=== PATIENT | male | born 1950 | race Caucasian/White ===

== ENCOUNTER 2020-05-15 17:03 | Inpatient (IN) | payer OTHER ==
[~2020-05-15 17:03] MED LIST: ACETAMINOPHEN325 MG PO; BUSPAR5 MG PO; CERTAGEN1 EACH PO; DULERA 200 MCG8.8 GM INH; FEOSOL325 MG PO; MAG-OXIDE 400M400 MG PO; NICOTINE PATCH1 EAC2 TD; OXYCODONE-ACET1 EAC1 PO; PANTOPRAZOLE SO40 MG PO; PROVENTIL HFA6.7 GM INH; SPIRIVA 185 PUFFS/IN INH; TOPROL XL 25MG25 MG PO; VITAMIN B-1100 M1 PO; XARELTO10 MG PO
[2020-05-15 18:29] LABS: BASOPHIL 0.3 % (0-2); EOSINOPHIL 0 % (0-7); HCT 43.4 % (42.0-52.0); HGB 15.6 g/dl (13.2-18.0); LYMPHOCYTE 15.1 % (15-48); MCH 33.3 pg (25.0-31.0); MCHC 35.9 g/dL (32.0-36.0); MCV 92.7 fL (78.0-100.0); MONOCYTE 15.4 % (0-12); MPV 10.1 fL (6.0-9.5); NEUTROPHIL 68.9 % (41-80); NRBC 0; PLT 115 K/uL (150-400); RBC 4.68 M/uL (4.70-6.00); RDW 12.9 % (11.5-14.0)
[2020-05-15 18:36] LABS: BILIRUBIN NEGATIVE (NEGATIVE); BLOOD NEGATIVE Ery/uL (NEGATIVE); CLARITY CLEAR (CLEAR); COLOR YELLOW (YELLOW); GLUCOSE (U) NORMAL (NORMAL); LEUKOCYTES TRACE Leu/uL (NEGATIVE); NITRITE NEGATIVE (NEGATIVE); PROTEIN NEGATIVE (NEGATIVE); SPECIFIC GRAVITY 1.015 (1.001-1.030); UROBILINOGEN 0.2 mg/dL (0.2-1.0); pH 6.5 (5.0-9.0)
[2020-05-15 18:42] LABS: URINARY RBC RARE
[2020-05-15 18:43] LABS: BACTERIA 1+; MUCOUS MODERATE
[2020-05-15 18:49] LABS: ALBUMIN 3.5 g/dL (3.4-5.0); BILIRUBIN - TOTAL 0.4 mg/dL (0.2-1.0); BUN/CREAT RATIO (CALC) 18.4 RATIO; CREATININE 0.49 mg/dL (0.67-1.17); GLOBULIN (CALCULATION) 3.8 g/dL; POTASSIUM 3.3 mmol/L (3.5-5.1); TOTAL PROTEIN 7.3 g/dL (6.4-8.2)
[2020-05-15 19:30] LABS: CORONAVIRUS 2019 SARS-COV-2 POSITIVE (NEGATIVE)
[2020-05-15 19:31] LABS: INFLUENZA A NAA NEGATIVE (NEGATIVE)
[2020-05-15 20:11] LABS: AMPHETAMINES NEGATIVE (NEGATIVE); BARBITURATES NEGATIVE (NEGATIVE); ECSTASY (MDMA) NEGATIVE (NEGATIVE); MARIJUANA (THC) NEGATIVE (NEGATIVE); METHADONE NEGATIVE (NEGATIVE); OPIATES NEGATIVE (NEGATIVE); OXYCODONE NEGATIVE (NEGATIVE)
--- NOTE | 2020-05-15 22:23 | NUR ---
PATIENT CURSING, C/O BEING PUT ON MONITOR, BEING ASKED QUESTIONS AND BOTHERED, ANIMATED VOICE WITH TELLING ME MEDS BUT WON'T TELL NAMES BUT REFUSED TO SAY HE DOESN'T KNOW, "I'M NOT SMART LIKE YAJACOB, I DON'T HAVE THOSE COMPUTERS
[2020-05-16 05:00] LABS: BASOPHIL 0.9 % (0-2); EOSINOPHIL 0 % (0-7); HCT 36.3 % (42.0-52.0); LYMPHOCYTE 26.3 % (15-48); MCH 33.3 pg (25.0-31.0); MCHC 35.8 g/dL (32.0-36.0); MCV 93.1 fL (78.0-100.0); MONOCYTE 18.4 % (0-12); MPV 9.2 fL (6.0-9.5); NEUTROPHIL 53.9 % (41-80); NRBC 0; PLT 101 K/uL (150-400); RDW 12.9 % (11.5-14.0); WBC 2.2 K/uL (4.0-10.5)
[2020-05-16 05:19] LABS: ALBUMIN 2.8 g/dL (3.4-5.0); BILIRUBIN - TOTAL 0.4 mg/dL (0.2-1.0); BUN/CREAT RATIO (CALC) 14.9 RATIO; CREATININE 0.47 mg/dL (0.67-1.17); GLOBULIN (CALCULATION) 3.2 g/dL; POTASSIUM 2.9 mmol/L (3.5-5.1)
[2020-05-17 03:57] LABS: EOSINOPHIL 0.3 % (0-7); HCT 39.6 % (42.0-52.0); LYMPHOCYTE 23.4 % (15-48); MCH 33.6 pg (25.0-31.0); MCHC 35.4 g/dL (32.0-36.0); MONOCYTE 15.2 % (0-12); NEUTROPHIL 59.8 % (41-80); NRBC 0; PLT 104 K/uL (150-400); RBC 4.17 M/uL (4.70-6.00); RDW 13.1 % (11.5-14.0); WBC 2.9 K/uL (4.0-10.5)
[2020-05-17 04:22] LABS: ALBUMIN 2.8 g/dL (3.4-5.0); BILIRUBIN - TOTAL 0.3 mg/dL (0.2-1.0); BUN/CREAT RATIO (CALC) 17.3 RATIO; CREATININE 0.52 mg/dL (0.67-1.17); GLOBULIN (CALCULATION) 3.3 g/dL; POTASSIUM 3.6 mmol/L (3.5-5.1); TOTAL PROTEIN 6.1 g/dL (6.4-8.2)
--- NOTE | 2020-05-17 14:05 | NUR ---
05/17/20 Mr. Orourke lives in a makeshift apartment in a [place]. The place is heated with a wood burning stove. Ther is a bathroom. - Mr. Orourke would like to go to a DE until he is feeling stronger. His alternate plan would be to return to the [employer]. - Dr. Rosa was requested to order PT/OT.
[2020-05-18 03:49] LABS: BASOPHIL 0.7 % (0-2); EOSINOPHIL 0 % (0-7); HCT 39.8 % (42.0-52.0); HGB 14.2 g/dl (13.2-18.0); LYMPHOCYTE 24.8 % (15-48); MCH 33.2 pg (25.0-31.0); MCHC 35.7 g/dL (32.0-36.0); MONOCYTE 10.6 % (0-12); MPV 9.8 fL (6.0-9.5); NEUTROPHIL 63.2 % (41-80); NRBC 0; RBC 4.28 M/uL (4.70-6.00); RDW 12.9 % (11.5-14.0)
[2020-05-18 04:01] LABS: PLT 123 K/uL (150-400)
[2020-05-18 04:07] LABS: WBC 1.4 K/uL (4.0-10.5)
[2020-05-18 04:12] LABS: ALBUMIN 2.9 g/dL (3.4-5.0); BILIRUBIN - TOTAL 0.4 mg/dL (0.2-1.0); BUN/CREAT RATIO (CALC) 27.3 RATIO; C-REACTIVE PROTEIN 3.4 mg/dL (<=0.90); CREATININE 0.33 mg/dL (0.67-1.17); GLOBULIN (CALCULATION) 3.8 g/dL; POTASSIUM 3.7 mmol/L (3.5-5.1); TOTAL PROTEIN 6.7 g/dL (6.4-8.2)
--- NOTE | 2020-05-18 12:45 | NUR ---
2 [facility] is reviewing Mr. Orourke for admission.
[2020-05-19 06:43] LABS: BASOPHIL 0.2 % (0-2); EOSINOPHIL 0 % (0-7); HCT 38.6 % (42.0-52.0); HGB 13.7 g/dl (13.2-18.0); LYMPHOCYTE 16.2 % (15-48); MCH 33.4 pg (25.0-31.0); MCHC 35.5 g/dL (32.0-36.0); MCV 94.1 fL (78.0-100.0); MONOCYTE 18.1 % (0-12); MPV 10.1 fL (6.0-9.5); NEUTROPHIL 64.8 % (41-80); NRBC 0; PLT 157 K/uL (150-400); RDW 12.9 % (11.5-14.0)
[2020-05-19 06:46] LABS: WBC 4.6 K/uL (4.0-10.5)
[2020-05-19 07:20] LABS: ALBUMIN 2.8 g/dL (3.4-5.0); BILIRUBIN - TOTAL 0.3 mg/dL (0.2-1.0); BUN/CREAT RATIO (CALC) 25.7 RATIO; C-REACTIVE PROTEIN 1.7 mg/dL (<=0.90); CREATININE 0.35 mg/dL (0.67-1.17); GLOBULIN (CALCULATION) 3.5 g/dL; POTASSIUM 3.6 mmol/L (3.5-5.1); TOTAL PROTEIN 6.3 g/dL (6.4-8.2)
[2020-05-20 06:58] LABS: BASOPHIL 0.2 % (0-2); EOSINOPHIL 0 % (0-7); HCT 38.4 % (42.0-52.0); HGB 13.4 g/dl (13.2-18.0); MCHC 34.9 g/dL (32.0-36.0); MCV 94.6 fL (78.0-100.0); MONOCYTE 13.1 % (0-12); MPV 9.5 fL (6.0-9.5); NEUTROPHIL 61.2 % (41-80); NRBC 0; PLT 210 K/uL (150-400); RBC 4.06 M/uL (4.70-6.00); RDW 13.1 % (11.5-14.0); WBC 5.3 K/uL (4.0-10.5)
[2020-05-20 06:59] LABS: LYMPHOCYTE 25.1 % (15-48)
[2020-05-20 07:33] LABS: ALBUMIN 2.7 g/dL (3.4-5.0); BILIRUBIN - TOTAL 0.3 mg/dL (0.2-1.0); BUN/CREAT RATIO (CALC) 32.4 RATIO; C-REACTIVE PROTEIN 1.2 mg/dL (<=0.90); CREATININE 0.37 mg/dL (0.67-1.17); GLOBULIN (CALCULATION) 3.6 g/dL; TOTAL PROTEIN 6.3 g/dL (6.4-8.2)
--- NOTE | 2020-05-20 12:19 | NUR ---
05/20/20 [facility] accepted Mr. Orourke. Please call report to: [phone] and fax DS to: . Report given to MS SONIA Conde.
[2020-05-20] MEDS ORDERED: DEXAMETHASONE 2M2 MG PO (14:25)
== END 2020-05-20 16:35 | DRG 177 ==
LOC: FER 17:03 → FMS 19:55
PROVIDERS: Internal Medicine; Nurse Practitioner; Nurse Practitioner Family; ADMIT Allergy & Immunology Allergy
PROC: 8E0ZXY6 Isolation (ICD-10-PCS; principal; 2020-05-15)
PROC: 3E0333Z Introduction of Anti-inflammatory into Peripheral Vein, Percutaneous Approach (ICD-10-PCS; 2020-05-18)
DX: U07.1 COVID-19 (principal); J12.82 Pneumonia due to coronavirus disease 2019; I50.22 Chronic systolic (congestive) heart failure; E87.1 Hypo-osmolality and hyponatremia; I42.9 Cardiomyopathy, unspecified; E44.0 Moderate protein-calorie malnutrition; Z68.1 Body mass index [BMI] 19.9 or less, adult; J44.9 Chronic obstructive pulmonary disease, unspecified; E87.6 Hypokalemia; I36.1 Nonrheumatic tricuspid (valve) insufficiency; F41.9 Anxiety disorder, unspecified; F32.9 Major depressive disorder, single episode, unspecified; F10.10 Alcohol abuse, uncomplicated; F17.210 Nicotine dependence, cigarettes, uncomplicated; Z99.81 Dependence on supplemental oxygen
CPT/HCPCS: 36415; 71045; 80053; 80305; 81001; 82728; 85025; 86140; 87088; 87205; 87449; 97161; 97165; 97535; G0480; J1650; J3411; J3475; J7030; J7120; J8540; U0002

== ENCOUNTER 2020-07-08 19:01 | Inpatient (IN) | payer OTHER ==
[~2020-07-08 19:01] MED LIST changes: +DEXAMETHASONE 2M2 MG PO
[2020-07-08 19:31] LABS: BASOPHIL 0.3 % (0-2); HCT 37.5 % (42.0-52.0); HGB 13.3 g/dl (13.2-18.0); LYMPHOCYTE 2.2 % (15-48); MCH 35.1 pg (25.0-31.0); MCHC 35.5 g/dL (32.0-36.0); MCV 98.9 fL (78.0-100.0); MONOCYTE 11.5 % (0-12); MPV 9.4 fL (6.0-9.5); NRBC 0; PLT 131 K/uL (150-400); RBC 3.79 M/uL (4.70-6.00); RDW 15.3 % (11.5-14.0); WBC 15.1 K/uL (4.0-10.5)
[2020-07-08 19:33] LABS: NEUTROPHIL 83.3 % (41-80)
[2020-07-08 19:51] LABS: ALBUMIN 2.9 g/dL (3.4-5.0); BILIRUBIN - TOTAL 0.9 mg/dL (0.2-1.0); BUN/CREAT RATIO (CALC) 14.1 RATIO; CREATININE 1.49 mg/dL (0.67-1.17); GLOBULIN (CALCULATION) 3.8 g/dL; TOTAL PROTEIN 6.7 g/dL (6.4-8.2)
[2020-07-08 20:01] LABS: POTASSIUM 3.3 mmol/L (3.5-5.1)
[2020-07-08 23:55] LABS: BILIRUBIN NEGATIVE (NEGATIVE); BLOOD 1+ Ery/uL (NEGATIVE); CLARITY HAZY (CLEAR); COLOR YELLOW (YELLOW); GLUCOSE (U) NORMAL (NORMAL); LEUKOCYTES 1+ Leu/uL (NEGATIVE); NITRITE POSITIVE (NEGATIVE); PROTEIN 2+ mg/dL (NEGATIVE); UROBILINOGEN 0.2 mg/dL (0.2-1.0)
[2020-07-09] LABS: BACTERIA 4+; URINARY WBC TNTC
[2020-07-09 00:01] LABS: MUCOUS TRACE
[2020-07-09 00:31] LABS: CORONAVIRUS 2019 SARS-COV-2 NEGATIVE (NEGATIVE); INFLUENZA A NAA NEGATIVE (NEGATIVE)
[2020-07-09 05:01] LABS: BASOPHIL 0.2 % (0-2); EOSINOPHIL 0 % (0-7); HCT 32.7 % (42.0-52.0); HGB 11.3 g/dl (13.2-18.0); LYMPHOCYTE 1.8 % (15-48); MCH 34.9 pg (25.0-31.0); MCHC 34.6 g/dL (32.0-36.0); MCV 100.9 fL (78.0-100.0); MONOCYTE 11.8 % (0-12); MPV 9.5 fL (6.0-9.5); NEUTROPHIL 74.3 % (41-80); NRBC 0; PLT 102 K/uL (150-400); RBC 3.24 M/uL (4.70-6.00); RDW 15.5 % (11.5-14.0); WBC 12.3 K/uL (4.0-10.5)
[2020-07-09 05:19] LABS: TOTAL CELL COUNT 100
[2020-07-09 05:20] LABS: ANISOCYTOSIS SLIGHT; BAND 9 % (0-10); BASOPHIL(M) 0 % (0-2); EOSINOPHIL(M) 0 % (0-7); LYMPHOCYTE(M) 6 % (15-48); MONOCYTE(M) 11 % (0-12); NEUTROPHILS(M) 74 % (41-80)
[2020-07-09 05:21] LABS: PLATELET ESTIMATE NORMAL; PLATELET MORPHOLOGY NORMAL
[2020-07-09 06:05] LABS: IRON % SATURATION 3.7 %SAT (20-50)
[2020-07-09 06:41] LABS: ALBUMIN 2.4 g/dL (3.4-5.0); BILIRUBIN - TOTAL 0.9 mg/dL (0.2-1.0); BUN/CREAT RATIO (CALC) 15.4 RATIO; CREATININE 1.36 mg/dL (0.67-1.17); FOLIC ACID (SERUM) 25.7 ng/mL (8.6-58.9); GLOBULIN (CALCULATION) 3.2 g/dL; MAGNESIUM 1.1 mg/dL (1.8-2.4); POTASSIUM 3.2 mmol/L (3.5-5.1); TOTAL PROTEIN 5.6 g/dL (6.4-8.2)
[2020-07-10 04:10] LABS: BUN/CREAT RATIO (CALC) 26.7 RATIO; CREATININE 1.01 mg/dL (0.67-1.17); POTASSIUM 3.4 mmol/L (3.5-5.1)
[2020-07-10 04:12] LABS: MAGNESIUM 2.2 mg/dL (1.8-2.4)
[2020-07-10 05:00] LABS: BASOPHIL 0.1 % (0-2); HCT 31.9 % (42.0-52.0); HGB 10.9 g/dl (13.2-18.0); LYMPHOCYTE 1.2 % (15-48); MCH 34.1 pg (25.0-31.0); MCHC 34.2 g/dL (32.0-36.0); MCV 99.7 fL (78.0-100.0); MONOCYTE 8.4 % (0-12); MPV 9.8 fL (6.0-9.5); NEUTROPHIL 63.7 % (41-80); PLT 124 K/uL (150-400); RDW 15.1 % (11.5-14.0); WBC 13.66 K/uL (4.0-10.5)
--- NOTE | 2020-07-10 10:38 | NUR ---
1040 P REFUSING TO HAVE IV HOOKED BACK UP, ALSO TOOK TELE MONITOR OFF AT THIS TIME, REFUSING TO LET PUT BACK ON, HE SAID HE HAS TO BE ABLE TO GO. DR BECKFORD NOTIFIED.
--- NOTE | 2020-07-10 10:52 | NUR ---
1052 PT ANGRY AND CUSSING, WANTS TO SHUT ROOM DOOR TO HAVE PRIVACY, HE WANTS TO GET UP AND MOVE AROUND. EDUCATED PT ON THE IMPORATNCE OF CALLING FOR HELP WHEN GETTING UP TO PREVENT FALLS. PT TOOK HIS OWN BUSPAR THAT HE HAD IN HIS ROOM. INSTRUCTED PT NOT TO TAKE, BUT HE TOOK ANYWAY. HE SAID IT HELPS HIM WHEN HE GETS ANGRY, WILL TALK TO DR ABOUT GETTING PRESCRIBED FOR HIM.
[2020-07-11 06:45] LABS: BASOPHIL 0.6 % (0-2); EOSINOPHIL 0 % (0-7); HCT 34.4 % (42.0-52.0); HGB 11.7 g/dl (13.2-18.0); LYMPHOCYTE 1.7 % (15-48); MONOCYTE 6.7 % (0-12); MPV 9.9 fL (6.0-9.5); NRBC 0; PLT 120 K/uL (150-400); RBC 3.34 M/uL (4.70-6.00); RDW 16.2 % (11.5-14.0); WBC 9.5 K/uL (4.0-10.5)
[2020-07-11 06:52] LABS: NEUTROPHIL 90.3 % (41-80)
[2020-07-11 07:24] LABS: ALBUMIN 2.6 g/dL (3.4-5.0); BILIRUBIN - TOTAL 0.2 mg/dL (0.2-1.0); BUN/CREAT RATIO (CALC) 29.1 RATIO; CREATININE 0.79 mg/dL (0.67-1.17); GLOBULIN (CALCULATION) 3.3 g/dL; MAGNESIUM 1.9 mg/dL (1.8-2.4); PHOSPHORUS 2.8 mg/dL (2.6-4.7); POTASSIUM 3.4 mmol/L (3.5-5.1); TOTAL PROTEIN 5.9 g/dL (6.4-8.2)
[2020-07-11 07:27] LABS: PRO-BNP 7249 pg/mL (<125)
[2020-07-12 05:50] LABS: BASOPHIL 0.5 % (0-2); EOSINOPHIL 0 % (0-7); HCT 34.3 % (42.0-52.0); HGB 11.5 g/dl (13.2-18.0); LYMPHOCYTE 2.9 % (15-48); MCH 34.5 pg (25.0-31.0); MCHC 33.5 g/dL (32.0-36.0); MONOCYTE 11.7 % (0-12); MPV 9.4 fL (6.0-9.5); NEUTROPHIL 83.7 % (41-80); NRBC 0; PLT 127 K/uL (150-400); RBC 3.33 M/uL (4.70-6.00); RDW 16.5 % (11.5-14.0); WBC 9.2 K/uL (4.0-10.5)
[2020-07-12 06:09] LABS: ALBUMIN 2.1 g/dL (3.4-5.0); BILIRUBIN - TOTAL 0.2 mg/dL (0.2-1.0); BUN/CREAT RATIO (CALC) 27.1 RATIO; CREATININE 0.7 mg/dL (0.67-1.17); GLOBULIN (CALCULATION) 3.6 g/dL; MAGNESIUM 1.9 mg/dL (1.8-2.4); POTASSIUM 3.8 mmol/L (3.5-5.1); TOTAL PROTEIN 5.7 g/dL (6.4-8.2)
--- NOTE | 2020-07-12 15:30 | NUR ---
07/12/20 Patient is not responsive at present. - Per previous assessments, patient lives in a makeshift apartment in a [place]. It is heated by a wood stove. A bathroom with shower is in the apartment. Patient previously reported have been evicted from Public Housing in [place]. Consequently, he is not eligible for public housing. - Further assessment will be conducted when patient is able to participate in an assessment.
[2020-07-12 18:27] LABS: BILIRUBIN NEGATIVE (NEGATIVE); BLOOD TRACE-INTACT Ery/uL (NEGATIVE); CLARITY CLEAR (CLEAR); COLOR YELLOW (YELLOW); GLUCOSE (U) NORMAL (NORMAL); LEUKOCYTES NEGATIVE Leu/uL (NEGATIVE); NITRITE NEGATIVE (NEGATIVE); PROTEIN TRACE (LOW) mg/dL (NEGATIVE); SPECIFIC GRAVITY 1.015 (1.001-1.030); UROBILINOGEN 0.2 mg/dL (0.2-1.0)
--- NOTE | 2020-07-12 19:20 | NUR ---
1819- PT MOVED TO ICU4 FOR INTUBATION, PT BROTHER MINNIE(MEDICAL POA) AND PT'S SON, SPOKE WITH DR. CONDE EXPRESSING THEIR WISHES FOR EVERYTHING TO BE DONE INCLUDING INTUBATION ARYAN RT AT BEDSIDE WITH DR. CONDE. [facility] STUDENT INTUBATED WITH DR. CONDE'S ASSIST, LARGE AMOUNT OF CARDONA COLORED SPUTUM SUCTIONED 1831 VERSED 2MG IVP 1832 100MG SUCC 20MG ETOMADATE 1833 PT INTUBATED WITH 7.5 TUBE, 22 AT THE LIP, WITH GOOD COLOR CHANGE. OG PLACED BY DR. CONDE.KUB ORDERED VENT SETTINGS AC R16,TVV 450,FIO2 60% PEEP 5
[2020-07-13 07:35] LABS: HCT 34.4 % (42.0-52.0); HGB 11.5 g/dl (13.2-18.0); MCH 35.3 pg (25.0-31.0); MCHC 33.4 g/dL (32.0-36.0); MCV 105.5 fL (78.0-100.0); MPV 10.7 fL (6.0-9.5); RBC 3.26 M/uL (4.70-6.00); WBC 8.4 K/uL (4.0-10.5)
[2020-07-13 07:50] LABS: BUN/CREAT RATIO (CALC) 24.3 RATIO; CREATININE 0.74 mg/dL (0.67-1.17); MAGNESIUM 1.7 mg/dL (1.8-2.4); PHOSPHORUS 2.6 mg/dL (2.6-4.7); POTASSIUM 4.6 mmol/L (3.5-5.1)
--- NOTE | 2020-07-13 14:09 | NUR ---
07/13/20 Bravo Orourke, brother, , reported to have been told by Audie Orourke that he had been made the POA. Bravo CashParish reports to have been unable to locate the document in the location Audie Orourke had told him it would be. Mr. Orourke reports rhina Audie Orourke has 2 living children; Sena (last name unknown to Bravo) and Mady CashParish, son, . Bravo OronaElvis does not have a contact number for [place]. Bravo OronaFabrice reports that Mady Haven is coming to visit his father.
[2020-07-14 05:37] LABS: BASOPHIL 0.2 % (0-2); EOSINOPHIL 0 % (0-7); HCT 34.9 % (42.0-52.0); LYMPHOCYTE 8.3 % (15-48); MCH 35.3 pg (25.0-31.0); MCHC 34.4 g/dL (32.0-36.0); MCV 102.6 fL (78.0-100.0); MPV 9.7 fL (6.0-9.5); NEUTROPHIL 81.6 % (41-80); NRBC 0; PLT 197 K/uL (150-400); RDW 16.3 % (11.5-14.0); WBC 8.1 K/uL (4.0-10.5)
[2020-07-14 06:11] LABS: BUN/CREAT RATIO (CALC) 21.6 RATIO; CREATININE 0.74 mg/dL (0.67-1.17); POTASSIUM 3.8 mmol/L (3.5-5.1)
--- NOTE | 2020-07-14 13:50 | NUR ---
RD on unit to assess nutrition support. TF@ 30cc/hr. attempting extubation; RT/RN in room. Kofi d/c'd. Will follow POC for recommendations.
--- NOTE | 2020-07-14 18:27 | NUR ---
EXTUBATED 1350 BY ALPHONSO RT AND I ASSISTED.PLACED ON 50% VENTRI AND ABOUT 2 HRS LATER PLACED ON 4L NC. PT STATING 97 %
[2020-07-15 05:34] LABS: BASOPHIL 0.1 % (0-2); EOSINOPHIL 0 % (0-7); HCT 35.1 % (42.0-52.0); HGB 11.9 g/dl (13.2-18.0); LYMPHOCYTE 8.1 % (15-48); MCH 35.1 pg (25.0-31.0); MCHC 33.9 g/dL (32.0-36.0); MCV 103.5 fL (78.0-100.0); MPV 9.5 fL (6.0-9.5); NEUTROPHIL 85.3 % (41-80); NRBC 0; PLT 222 K/uL (150-400); RBC 3.39 M/uL (4.70-6.00); RDW 15.8 % (11.5-14.0); WBC 7.6 K/uL (4.0-10.5)
[2020-07-15 05:59] LABS: BUN/CREAT RATIO (CALC) 20.9 RATIO; CREATININE 0.67 mg/dL (0.67-1.17)
[2020-07-16 04:46] LABS: BASOPHIL 0.5 % (0-2); EOSINOPHIL 0.3 % (0-7); HGB 12.4 g/dl (13.2-18.0); LYMPHOCYTE 9.6 % (15-48); MCH 34.8 pg (25.0-31.0); MCHC 33.5 g/dL (32.0-36.0); MCV 103.9 fL (78.0-100.0); MONOCYTE 5.1 % (0-12); MPV 9.7 fL (6.0-9.5); NEUTROPHIL 83.4 % (41-80); NRBC 0; PLT 236 K/uL (150-400); RBC 3.56 M/uL (4.70-6.00); RDW 15.8 % (11.5-14.0); WBC 7.4 K/uL (4.0-10.5)
[2020-07-16 05:01] LABS: BUN/CREAT RATIO (CALC) 18.7 RATIO; CREATININE 0.75 mg/dL (0.67-1.17); MAGNESIUM 1.7 mg/dL (1.8-2.4); POTASSIUM 4.2 mmol/L (3.5-5.1)
[2020-07-17 03:58] LABS: BASOPHIL 0.2 % (0-2); EOSINOPHIL 0.1 % (0-7); HCT 38.4 % (42.0-52.0); LYMPHOCYTE 8.1 % (15-48); MCH 34.5 pg (25.0-31.0); MCHC 33.9 g/dL (32.0-36.0); MCV 101.9 fL (78.0-100.0); MONOCYTE 5.2 % (0-12); MPV 9.6 fL (6.0-9.5); NEUTROPHIL 85.6 % (41-80); NRBC 0; PLT 238 K/uL (150-400); RBC 3.77 M/uL (4.70-6.00); RDW 15.2 % (11.5-14.0); WBC 8.6 K/uL (4.0-10.5)
[2020-07-17 04:20] LABS: CREATININE 0.63 mg/dL (0.67-1.17); POTASSIUM 3.6 mmol/L (3.5-5.1)
[2020-07-18 06:20] LABS: BASOPHIL 0.3 % (0-2); EOSINOPHIL 0.9 % (0-7); HCT 37.2 % (42.0-52.0); HGB 12.5 g/dl (13.2-18.0); LYMPHOCYTE 8.8 % (15-48); MCHC 33.6 g/dL (32.0-36.0); MCV 104.2 fL (78.0-100.0); MONOCYTE 8.1 % (0-12); MPV 9.6 fL (6.0-9.5); NEUTROPHIL 80.6 % (41-80); NRBC 0; PLT 239 K/uL (150-400); RBC 3.57 M/uL (4.70-6.00); RDW 15.2 % (11.5-14.0); WBC 8.9 K/uL (4.0-10.5)
[2020-07-18 06:53] LABS: BUN/CREAT RATIO (CALC) 32.4 RATIO; CREATININE 0.71 mg/dL (0.67-1.17); MAGNESIUM 1.7 mg/dL (1.8-2.4); POTASSIUM 3.1 mmol/L (3.5-5.1)
[2020-07-18 07:59] LABS: ALBUMIN 2.6 g/dL (3.4-5.0); BILIRUBIN - DIRECT 0.1 mg/dL (0.00-0.20); BILIRUBIN - TOTAL 0.2 mg/dL (0.2-1.0); GLOBULIN (CALCULATION) 3.2 g/dL; TOTAL PROTEIN 5.8 g/dL (6.4-8.2)
[2020-07-18] MEDS ORDERED: CEFDINIR300 MG PO (12:04)
[2020-07-18] MEDS ORDERED: MEDROL 4MG DOSEP4 MG PO (12:04)
[2020-07-18] MEDS ORDERED: TOPROL XL 50 MG50 MG PO (12:04)
--- NOTE | 2020-07-18 12:30 | NUR ---
MET WITH PT. AND SON. PT REQUESTS [facility]. SIGNED CHOICE FORM. REQUESTED [facility] THROUGH [employer].
== END 2020-07-18 13:30 | disposition home health service (06) | DRG 871 ==
LOC: FER 19:01 → FTCU 07-09 00:58 → FICU 07-12 17:56 → FTCU 07-16 09:43 → FMS 07-17 09:45
PROVIDERS: Internal Medicine; Nurse Practitioner; Student in an Organized Health Care Education/Training Program; ADMIT Allergy & Immunology Allergy
PROC: 0BH17EZ Insertion of Endotracheal Airway into Trachea, Via Natural or Artificial Opening (ICD-10-PCS; principal; 2020-07-12)
PROC: 5A1945Z Respiratory Ventilation, 24-96 Consecutive Hours (ICD-10-PCS; 2020-07-12)
DX: A41.51 Sepsis due to Escherichia coli [E. coli] (principal); J96.01 Acute respiratory failure with hypoxia; J18.9 Pneumonia, unspecified organism; G93.41 Metabolic encephalopathy; I50.23 Acute on chronic systolic (congestive) heart failure; J44.1 Chronic obstructive pulmonary disease with (acute) exacerbation; N17.9 Acute kidney failure, unspecified; F10.231 Alcohol dependence with withdrawal delirium; N30.00 Acute cystitis without hematuria; J44.0 Chronic obstructive pulmonary disease with (acute) lower respiratory infection; E44.0 Moderate protein-calorie malnutrition; Z68.1 Body mass index [BMI] 19.9 or less, adult; I42.9 Cardiomyopathy, unspecified; Z20.822 Contact with and (suspected) exposure to COVID-19; K72.90 Hepatic failure, unspecified without coma; R65.20 Severe sepsis without septic shock; F41.9 Anxiety disorder, unspecified; F32.9 Major depressive disorder, single episode, unspecified; I95.9 Hypotension, unspecified; M19.90 Unspecified osteoarthritis, unspecified site; R13.10 Dysphagia, unspecified; Z96.652 Presence of left artificial knee joint; Z86.16 Personal history of COVID-19; Z98.890 Other specified postprocedural states; Z79.899 Other long term (current) drug therapy
CPT/HCPCS: 31500; 36415; 36430; 36600; 70450; 71045; 71275; 74018; 80048; 80053; 80076; 80202; 81001; 81003; 82140; 82150; 82607; 82746; 82803; 83540; 83550; 83605; 83735; 83880; 84100; 84145; 84153; 84484; 85025; 87040; 87070; 87077; 87088; 87186; 87205; 92950; 93005; 94002; 94640; 94664; 94667; 94668; 94760; 97110; 97116; 97162; 97166; 97530; 97530-GP; 97535; C9113; J0330; J0696; J1650; J1940; J2060; J2250; J2543; J2560; J2704; J2916; J2920; J2930; J3360; J3370; J3411; J3475; J3480; J7030; J7040; J7050; J7120; J7512; Q9967; U0002

== ENCOUNTER 2020-10-03 23:10 | Emergency (ER) | payer OTHER ==
[~2020-10-03 23:10] MED LIST changes: +CEFDINIR300 MG PO; +MEDROL 4MG DOSEP4 MG PO; +TOPROL XL 50 MG50 MG PO
[2020-10-04 00:54] LABS: BILIRUBIN NEGATIVE (NEGATIVE); BLOOD NEGATIVE Ery/uL (NEGATIVE); CLARITY CLEAR (CLEAR); COLOR YELLOW (YELLOW); EOSINOPHIL 1.2 % (0-7); GLUCOSE (U) NORMAL (NORMAL); HCT 38.5 % (42.0-52.0); HGB 13.9 g/dl (13.2-18.0); LEUKOCYTES NEGATIVE Leu/uL (NEGATIVE); LYMPHOCYTE 34.5 % (15-48); MCH 34.7 pg (25.0-31.0); MCHC 36.1 g/dL (32.0-36.0); MPV 8.4 fL (6.0-9.5); NEUTROPHIL 50.8 % (41-80); NITRITE NEGATIVE (NEGATIVE); NRBC 0; PLT 198 K/uL (150-400); PROTEIN NEGATIVE (NEGATIVE); RBC 4.01 M/uL (4.70-6.00); RDW 12.6 % (11.5-14.0); SPECIFIC GRAVITY <=1.005 (1.001-1.030); UROBILINOGEN 0.2 mg/dL (0.2-1.0); WBC 4.1 K/uL (4.0-10.5); pH 6.5 (5.0-9.0)
[2020-10-04 00:56] LABS: AMPHETAMINES NEGATIVE (NEGATIVE); BARBITURATES NEGATIVE (NEGATIVE); ECSTASY (MDMA) NEGATIVE (NEGATIVE); MARIJUANA (THC) NEGATIVE (NEGATIVE); METHADONE NEGATIVE (NEGATIVE); OPIATES NEGATIVE (NEGATIVE)
[2020-10-04 00:57] LABS: OXYCODONE NEGATIVE (NEGATIVE)
[2020-10-04 01:29] LABS: LACTIC ACID 1.6 mmol/L (0.4-1.9)
[2020-10-04 01:32] LABS: ACETAMINOPHEN (TYLENOL) < 2.0 ug/mL (10.0-30.0); ALBUMIN 3.9 g/dL (3.4-5.0); ALKALINE PHOSHATASE 77 U/L (46-116); ALT 23 U/L (16-63); AST 39 U/L (15-37); BILIRUBIN - TOTAL 0.5 mg/dL (0.2-1.0); BUN 4 mg/dL (7-18); BUN/CREAT RATIO (CALC) 8.2 RATIO; CHLORIDE 88 mmol/L (98-107); CO2 (BICARBONATE) 21 mmol/L (21-32); CPK 117 U/L (39-308); CREATININE 0.49 mg/dL (0.67-1.17); GLOBULIN (CALCULATION) 4.1 g/dL; GLUCOSE 74 mg/dL (74-106); LIPASE 120 U/L (73-393); POTASSIUM 4.6 mmol/L (3.5-5.1)
[2020-10-04 07:18] LABS: BUN/CREAT RATIO (CALC) 8.5 RATIO; CREATININE 0.47 mg/dL (0.67-1.17); POTASSIUM 4.2 mmol/L (3.5-5.1)
== END 2020-10-04 07:50 | disposition home or self-care (01) ==
LOC: FER 23:10
PROVIDERS: Emergency Medicine Emergency Medical Services
DX: F10.10 Alcohol abuse, uncomplicated (principal); E87.1 Hypo-osmolality and hyponatremia; R60.0 Localized edema; I10 Essential (primary) hypertension; F17.210 Nicotine dependence, cigarettes, uncomplicated; Y90.6 Blood alcohol level of 120-199 mg/100 ml
CPT/HCPCS: 36415; 71045; 80048; 80053; 80305; 81003; 82550; 83605; 83690; 84484; 85025; 93005; G0480; J3411; J7030

== ENCOUNTER 2021-10-12 20:04 | Emergency (ER) | payer OTHER ==
[2021-10-12 20:30] LABS: BASOPHIL 0.9 % (0-2); EOSINOPHIL 1.7 % (0-7); HCT 34.7 % (42.0-52.0); HGB 12.7 g/dl (13.2-18.0); LYMPHOCYTE 31.5 % (15-48); MCH 33.5 pg (25.0-31.0); MCHC 36.6 g/dL (32.0-36.0); MCV 91.6 fL (78.0-100.0); MONOCYTE 7.1 % (0-12); MPV 9.5 fL (6.0-9.5); NEUTROPHIL 58.2 % (41-80); NRBC 0; PLT 153 K/uL (150-400); RBC 3.79 M/uL (4.70-6.00); RDW 12.7 % (11.5-14.0)
[2021-10-12 20:32] LABS: WBC 5.3 K/uL (4.0-10.5)
[2021-10-12 20:41] LABS: INR 1.05 (0.9-1.2); PROTHROMBIN TIME 13.1 SECONDS (11.8-13.4); PTT 33.8 SECONDS (24.4-34.7)
[2021-10-12 20:54] LABS: ALBUMIN 3.8 g/dL (3.4-5.0); BILIRUBIN - TOTAL 0.5 mg/dL (0.2-1.0); BUN/CREAT RATIO (CALC) 8.2 RATIO; CREATININE 0.61 mg/dL (0.67-1.17); GLOBULIN (CALCULATION) 3.3 g/dL; POTASSIUM 3.5 mmol/L (3.5-5.1); TOTAL PROTEIN 7.1 g/dL (6.4-8.2)
[2021-10-12 21:59] LABS: BILIRUBIN NEGATIVE (NEGATIVE); BLOOD NEGATIVE Ery/uL (NEGATIVE); CLARITY CLEAR (CLEAR); COLOR YELLOW (YELLOW); GLUCOSE (U) NORMAL (NORMAL); LEUKOCYTES TRACE Leu/uL (NEGATIVE); NITRITE NEGATIVE (NEGATIVE); PROTEIN NEGATIVE (NEGATIVE); SPECIFIC GRAVITY <=1.005 (1.001-1.030); UROBILINOGEN 0.2 mg/dL (0.2-1.0)
[2021-10-12 22:04] LABS: AMPHETAMINES NEGATIVE (NEGATIVE); BARBITURATES NEGATIVE (NEGATIVE); ECSTASY (MDMA) NEGATIVE (NEGATIVE); MARIJUANA (THC) NEGATIVE (NEGATIVE); METHADONE NEGATIVE (NEGATIVE); OPIATES NEGATIVE (NEGATIVE); OXYCODONE NEGATIVE (NEGATIVE)
[2021-10-12 22:30] LABS: URINARY RBC RARE
[2021-10-12 22:31] LABS: BACTERIA 3+; SQUAMOUS EPITHELIAL CELLS RARE
[2021-10-12 23:14] LABS: BUN/CREAT RATIO (CALC) 9.4 RATIO; CREATININE 0.53 mg/dL (0.67-1.17); POTASSIUM 3.6 mmol/L (3.5-5.1)
== END 2021-10-13 01:31 | disposition home or self-care (01) ==
LOC: FER 20:04
PROVIDERS: Internal Medicine
DX: M25.552 Pain in left hip (principal); F10.129 Alcohol abuse with intoxication, unspecified; E87.1 Hypo-osmolality and hyponatremia; I10 Essential (primary) hypertension; I25.10 Atherosclerotic heart disease of native coronary artery without angina pectoris; F17.210 Nicotine dependence, cigarettes, uncomplicated; W19.XXXA Unspecified fall, initial encounter; Y93.89 Activity, other specified; Y90.7 Blood alcohol level of 200-239 mg/100 ml
CPT/HCPCS: 36415; 70450; 80048; 80053; 80305; 81001; 84145; 85025; 85610; 85730; 87076; 87088; 87186; G0480; J0696; J3411; J3475; J7030